=== PATIENT | male | born 1955 | race Caucasian/White ===

== ENCOUNTER → 2023-05-06 08:57 | Outpatient (REF) | payer OTHER, SELFPAY | LOC: DHCBC MAIN 08:57 | PROVIDERS: ATTENDING PHYSICIAN Internal Medicine Cardiovascular Disease; FAMILY PHYSICIAN Family Medicine | DX: I48.19 Other persistent atrial fibrillation (principal); I10 Essential (primary) hypertension; E78.00 Pure hypercholesterolemia, unspecified; I34.0 Nonrheumatic mitral (valve) insufficiency | CPT/HCPCS: 93306 ==